=== PATIENT | female | born 1995 | race Caucasian/White ===

== ENCOUNTER 2023-06-16 06:04 | Day surgery (SDC) | payer OTHER ==
[~2023-06-16] VITALS: Ht 162.6 cm; Wt 59.9 kg
[2023-06-16] MEDS ORDERED: BUPIVACAINE-MPF 0.25% 30 ML VIAL INJ ONE (06:48)
[2023-06-16] MEDS ORDERED: LIDOCAINE/EPI MPF 1%1:200000 30 ML VIAL INJ ONE (06:48)
[2023-06-16] MEDS ORDERED: PROPOFOL 200 MG/20 ML VIAL IV ONE (07:20)
[2023-06-16] MEDS ORDERED: SUCCINYLCHOLINE CHLORIDE 200 MG/10 ML VIAL IV ONE (07:20)
[2023-06-16] MEDS ORDERED: SEVOFLURANE 250 ML BTL INH ONE (07:20)
[2023-06-16] MEDS ORDERED: MIDAZOLAM 2 MG/2 ML VIAL ONE (07:31)
[2023-06-16] MEDS ORDERED: fentaNYL citrate 0.05 MG/ML VIAL ONE (07:31)
[2023-06-16] MEDS ORDERED: ceFAZolin 2,000 MG VIAL ONE (07:34)
[2023-06-16] MEDS ORDERED: ONDANSETRON 4 MG/2 ML VIAL ONE (08:07)
[2023-06-16] MEDS ORDERED: LIDOCAINE MPF 2% 100 MG/5 ML VIAL INJ ONE (08:07)
[2023-06-16] MEDS ORDERED: DEXAMETHASONE 4 MG/ML VIAL ONE (08:07)
[2023-06-16] MEDS ORDERED: LACTATED RINGERS 1,000 ML IV SCH (08:55)
[2023-06-16] MEDS ORDERED: ONDANSETRON 4 MG/2 ML VIAL IVP PRN (08:55)
[2023-06-16] MEDS ORDERED: MEPERIDINE 25 MG/ML SYR IVP PRN (08:55)
[2023-06-16] MEDS ORDERED: KETOROLAC 30 MG/ML VIAL IVP ONE (09:05)
[2023-06-16] MEDS ORDERED: HYDROmorphone PFS 2 MG/ML SYR ONE (09:18)
[2023-06-16] MEDS: HYDROmorphone 1 MG/ML AMP IVP PRN ×3 (09:20→09:40)
== END 2023-06-16 11:12 | disposition home or self-care (01) ==
LOC: MOR 06:04 → MMU 06:25 → MOR 11:12
PROVIDERS: ATTEND Obstetrics & Gynecology
DX: N90.60 Unspecified hypertrophy of vulva (principal)
CPT/HCPCS: 36415; 56620; 86886; 86900; 86901; 88304; J0330; J1100; J1170; J2001; J2250; J2405; J2704; J3010; J3490; J0690; J7060